=== PATIENT | female | born 1990 | race Caucasian/White ===

== ENCOUNTER → 2023-01-07 11:22 | Outpatient (CLI) | payer BC, SELFPAY ==
--- NOTE | ~2023-01-07 | US_ITS ---
EXAMINATION: US OB /maternal detail DATE: 01/07/2023 12:15 INDICATION: anatomic survey. TECHNIQUE: Real-time ultrasound of the pelvis was performed. COMPARISON: None. FINDINGS: There is a single living fetus in vertex presentation. The placenta is posterior, 0.9 cm from the ce rvix. The cervical length is 4.2 cm on transabdominal images, which is normal. heart rate is 15 7 beats per minute (bpm). The amniotic fluid volume is subjectively normal. The following biometric data were obtained: Biparietal diameter (BPD): 4.8 cm; head circumference (HC): 17.9 cm; abdominal circumference (AC): 14 .1 cm; femur length (FL): 3.2 cm. These measurements are discordant with high HC/AC. Estimated weight is 312 g +/- 47 g, which correlates with the 26th percentile when 05/26/23 is u sed as estimated date of delivery. As single measurements, these parameters are each equal to the following estimated gestational ages: BPD: 20 weeks 3 days. HC: 20 weeks 2 days. AC: 19 weeks 3 days. FL: 20 weeks 0 days. estimated gestational age based solely on measurements from this exam is 20 weeks 0 days +/- 1 weeks 3 days. The cerebral ventricles, cerebellum, cisterna magna, nuchal fold, lip, and visualized portions of the spine are normal. The heart is normal. The diaphragm, stomach, kidneys, and bladder are normal. Ther e are two umbilical arteries to yield a 3-vessel cord. The cord insertion is normal. IMPRESSION: 1. Single living fetus in vertex presentation. 2. Estimated weight is 312 g +/- 47 g, which correlates with the 26th percentile when 05/26/23 is used as estimated date of delivery. 3. Normal anatomic survey. 4. Discordant biometrics with high HC/AC ratio. 5. Low-lying placenta. Reviewed, dictated and finalized at location A. IMPRESSION: 1. Single living fetus in vertex presentation. 2. Estimated weight is 312 g +/- 47 g, which correlates with the 26th pe rcentile when 05/26/23 is used as estimated date of delivery. 3. Normal anatomic survey. 4. Discordant biometrics with high HC/AC ratio. 5. Low-lying placenta.
== END ==
PROVIDERS: PCP Obstetrics & Gynecology Gynecologic Oncology; Visit Provider Obstetrics & Gynecology Gynecologic Oncology
DX: Z36.9 Encounter for antenatal screening, unspecified (principal); Z3A.20 20 weeks gestation of pregnancy
CPT/HCPCS: 76805

== ENCOUNTER → 2023-02-18 06:59 | Outpatient (CLI) | payer BC, SELFPAY ==
--- NOTE | ~2023-02-18 | US_ITS ---
EXAMINATION: US OB follow up DATE: 02/19/2023 09:27 INDICATION: Low-lying placenta. TECHNIQUE: Real-time transabdominal obstetric ultrasound. FINDINGS: Comparison ultrasound dated C5/oh 11/2022 There is a single living fetus in vertex presentation. The placenta is posterior without placenta pr evia. Placental margin is 3.3 cm to the cervix. Amniotic fluid index is normal measuring 16.5 cm. Cer vical length is 3.5 cm. cardiac activity and movement is noted with a heart rate of 143 beats per minute. The following biometric data were obtained: BPD: 65mm corresponds to gestational age 26 weeks 1 days. Head circumference: 239mm corresponds to gestational age 26 weeks 0 days. Abdominal circumference: 189mm corresponds to gestational age 23 weeks 4 days. Femur length: 48mm corresponds to gestational age 25 weeks 6 days. Estimated weight: 740grams +/- 111grams, 5.1%.] IMPRESSION: 1. Single living intrauterine in vertex presentation with an estimated gestational age of 26 weeks 0 days by inititial ultrasound. Small for gestational age, estimated weight is 5.1%. 2. Low-lying placenta measures 3.3 cm to the cervix.. Reviewed, dictated and finalized at location [] IMPRESSION: 1. Single living intrauterine in vertex presentation with an estimat ed gestational age of 26 weeks 0 days by inititial ultrasound. Small for gestat ional age, estimated weight is 5.1%. 2. Low-lying placenta measures 3.3 cm to the cervix..
== END ==
PROVIDERS: PCP Obstetrics & Gynecology; Visit Provider Obstetrics & Gynecology
DX: O44.42 Low lying placenta NOS or without hemorrhage, second trimester (principal); Z3A.26 26 weeks gestation of pregnancy
CPT/HCPCS: 76816

== ENCOUNTER 2024-04-01 15:47 | Outpatient (CLI) | payer BC, SELFPAY ==
--- NOTE | ~2024-04-01 | US_ITS ---
EXAMINATION: US OB /maternal detail DATE: 04/01/2024 16:21 INDICATION: survey TECHNIQUE: Multiple obstetric sonographic images performed. FINDINGS: No prior studies for comparison. There is a single living fetus in breech presentation. The placenta is anterior without placenta pre via. Placental margin to the cervix is 3 cm. Amniotic fluid volume is subjectively normal. Cervical l ength is 3.3 cm. cardiac activity and movement is noted with a heart rate of 153 beats per minute. The following anatomy was identified as normal: 4 chamber heart 3 vessel cord cord insertion kidneys urinary bladder stomach spine diaphragm ventricles cisterna magna cerebellum The following biometric data were obtained: BPD: 50mm corresponds to gestational age 21 weeks 1 days. Head circumference: 191 mm corresponds to gestational age 21 weeks 2 days. Abdominal circumference: 156 mm corresponds to gestational age 20 weeks 5 days. Femur length: 34 mm corresponds to gestational age 20 weeks 5 days. Head circumference to abdominal circumference ratio: 1.22 (normal range for expected gestational age is 1.06-1.25). Estimated weight: 379 grams +/- 57 grams using Hadlock method. IMPRESSION: 1: Single living intrauterine with an estimated gestational age of 21weeks 0days by current ultrasound measurements, with an EDC of 08/12/2024 in breech presentation. 2. Normal survey. Reviewed, dictated and finalized at location B. IMPRESSION: 1: Single living intrauterine with an estimated gestational age of 21 weeks 0days by current ultrasound measurements, with an EDC of 08/12/2024 in br eech presentation. 2. Normal survey.
== END 2024-04-01 15:48 ==
PROVIDERS: PCP Obstetrics & Gynecology; Visit Provider Obstetrics & Gynecology
DX: Z36.9 Encounter for antenatal screening, unspecified (principal)
CPT/HCPCS: 76805